=== PATIENT | female | born 1990 | race Caucasian/White ===

== ENCOUNTER 2017-07-14 23:36 | Emergency (ER) | payer BC ==
--- NOTE | 2017-07-15 02:18 | Cat Scan Report ---
FINAL REPORT EXAM: CT HEAD/BRAIN W/O CONTRAST. HISTORY: HEADACHE. TECHNIQUE: Unenhanced axial CT images of the brain were obtained. No prior studies are available for comparison. FINDINGS: The cortical sulci and ventricles are within normal limits for patient's age. There is asymmetric relative enlargement of the left frontal horn, with mild patchy areas of low-attenuation in the adjacent periventricular white matter. This is of uncertain etiology and may represent sequela prior chronic injury/ischemia. Clinical correlation is recommended. There is no extra-axial fluid collection, mass, mass effect, midline shift, hydrocephalus, or acute intracranial hemorrhage. The visualized paranasal sinuses and mastoid air cells are clear. There is no skull fracture or other osseous abnormality. IMPRESSION: 1. Asymmetric relative enlargement of the left frontal horn, with foci of mild patchy low attenuation in the surrounding periventricular white matter. These findings are nonspecific, but favor chronic etiology (such as sequela of prior injury/ischemia). Clinical correlation is recommended, and MRI examination may be useful for further evaluation. 2. No mass effect, hydrocephalus, or acute intracranial hemorrhage.
[2017-07-15 07:45] VITALS: BP 96/58
[2017-07-15] MEDS ORDERED: TORADOL IV ONE (07:45)
[2017-07-15] MEDS ORDERED: NACL 0.9% 1000 ML 1,000 ML IV ONE (07:45)
[2017-07-15] MEDS ORDERED: REGLAN IV ONE (07:45)
[2017-07-15] MEDS ORDERED: BENADRYL IV ONE (07:45)
--- NOTE | 2017-07-15 10:49 | Emergency Department Report ---
ED Headache HPI - General Chief Complaint: Headache Stated Complaint: HEADACHE - History of Present Illness Allergies/Adverse Reactions: Allergies No Known Allergies Allergy (Verified 07/14/17 23:58) Home Medications: Ambulatory Orders Butalb/Acetaminophen/Caffeine [Fioricet 50-300-40 mg CAP] 1 cap PO Q8HR #15 cap 07/15/17 ED Review of Systems ROS: Stated complaint: HEADACHE Other details as noted in HPI ED Past Medical Hx - Past Medical History Previous Medical History?: Yes Hx Psychiatric Treatment: Yes (DEPRESION) - Surgical History Past Surgical History?: No - Social History Smoking Status: Never Smoker Substance Use Type: None - Medications Home Medications: Home Medications Medication Instructions Recorded Confirmed Last Taken Type Butalb/Acetaminophen/Caffeine 1 cap PO Q8HR #15 cap 07/15/17 Unknown Rx [Fioricet 50-300-40 mg CAP] ED Physical Exam - General Limitations: Language Barrier ED Course Vital Signs 07/14/17 07/15/17 07/15/17 23:58 05:19 05:28 Temperature 98.7 F 98.1 F Pulse Rate 70 72 72 Respiratory 18 12 18 Rate Blood Pressure 108/68 107/72 Blood Pressure 102/60 [Left] O2 Sat by Pulse 98 99 99 Oximetry 07/15/17 07/15/17 07/15/17 07:43 07:58 08:27 Temperature 98.3 F Pulse Rate 90 Respiratory 16 18 16 Rate Blood Pressure Blood Pressure 96/58 [Left] O2 Sat by Pulse 100 Oximetry Critical care attestation.: If time is entered above; I have spent that time in minutes in the direct care of this critically ill patient, excluding procedure time. ED Disposition Disposition: DC-01 TO HOME OR SELFCARE Condition: Stable Instructions: Migraine Headache (ED) Prescriptions: Butalb/Acetaminophen/Caffeine [Fioricet 50-300-40 mg CAP] 1 cap PO Q8HR #15 cap Referrals: VICKY MIXON MD [Primary Care Provider] - 3-5 Days
== END 2017-07-15 09:36 | disposition home or self-care (01) ==
LOC: ED 23:36
DX: R51 Headache (principal); F32.9 Major depressive disorder, single episode, unspecified
CPT/HCPCS: 36415; 70450; 84703; 96374; 96375; 99284; J1200; J1885; J2765; J7030

== ENCOUNTER 2021-03-03 16:41 | Emergency (ER) | payer BC ==
[2021-03-03 17:59] VITALS: BP 98/57
--- NOTE | 2021-03-03 19:40 | Event Note ---
ED Screening Note Date of service: 03/03/21 Time: 19:35 ED Screening Note: 30-year-old female presents to the emergency room stating she is 7 weeks and is having nausea vomiting and vaginal bleeding. Having some pelvic pain. Last menstrual period 01/12/2021. Has not seen a CHAIN PEGGER. This initial assessment/diagnostic orders/clinical plan/treatment(s) is/are subject to change based on patients health status, clinical progression and re- assessment by fellow clinical providers in the ED. Further treatment and workup at subsequent clinical providers discretion. Patient/guardian urged not to elope from the ED as their condition may be serious if not clinically assessed and managed. Initial orders include:
[2021-03-03 20:03] LABS: Basophils # (Auto) 0.1 K/mm3 (0.0-0.1); Basophils % (Auto) 0.5 % (0.0-1.8); Eosinophils % (Auto) 0.5 % (0.0-4.3); Hemoglobin 13.1 gm/dl (10.1-14.3); Lymphocytes # (Auto) 3.4 K/mm3 (1.2-5.4); Mean Corpuscular HGB Conc 35 % (30-34); Mean Corpuscular Volume 89 fl (79-97); Monocytes # (Auto) 0.7 K/mm3 (0.0-0.8); Platelet Count 243 K/mm3 (140-440); Red Blood Count 4.28 M/mm3 (3.65-5.03); Red Cell Distribution Width 13.3 % (13.2-15.2)
[2021-03-03 20:46] LABS: Alanine Aminotransferase 46 units/L (7-56); Albumin 4.5 g/dL (3.9-5); Blood Urea Nitrogen 9 mg/dL (7-17); Calcium 9.4 mg/dL (8.4-10.2); Hemolysis Index 0
[2021-03-03 20:48] LABS: BUN/Creatinine Ratio 18
[2021-03-03 20:49] LABS: Bilirubin,Urine NEG (Negative); Blood,Urine NEG (Negative); Color,Urine Yellow (Yellow); Mucus,Urine 1+ /HPF; Protein,Urine <15 mg/dL mg/dL (Negative); Urobilinogen,Urine < 2.0 mg/dL (<2.0)
--- NOTE | 2021-03-03 22:58 | Ultrasound Report ---
ULTRASOUND OBSTETRIC INDICATION / CLINICAL INFORMATION: 7 wks, vag bleed, pelvic pain. Clinical Gestational Age (GA): 7.1 weeks.days TECHNIQUE: Transvaginal. COMPARISON: None available. FINDINGS: GESTATIONAL SAC: Well-defined oval shape and intrauterine in location. YOLK SAC: No significant abnormality. EMBRYO/FETUS: No significant abnormality. -Gestational sac diameter measures 3.02 cm = 8.1 weeks.days - Heart Rate, beats per minute (if present) = 125 ADNEXA: No significant abnormality. FREE FLUID: None. ADDITIONAL FINDINGS: None. IMPRESSION: 1. Single, living intrauterine with estimated sonographic age of 8.1 weeks.days. Signer Name: Elieser Dexter MD Signed: 03/03/2021 10:54 PM Workstation Name: [id number]
--- NOTE | 2021-03-03 23:38 | Emergency Department Report ---
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 She is 2 para 1 with a last menstrual period of 01/12/2021. Patient reports that she is approximately 7 weeks . She does admit to mild abdominal cramping. Patient states she is having a little bit of spotting and a little bit of cramps. Has no complications with her previous . She last delivered at [facility]. She is on a gone through 1 pad. No past medical history currently takes vitamins and has no known drug allergies. MD Complaint: abdominal pain, vaginal bleeding -: This morning Location: pelvis Severity scale (0 -10): 2 Quality: cramping Consistency: intermittent Improves with: none Associated symptoms: vaginal bleeding Vaginal bleeding: light :: Yes Number of weeks : 7 OB History - Previous Pregnancies: no complications Last menstrual period: 01/12/21 Pre- care: followed by OB - Related Data : 2 Para: 1 Previous Rx's Medication Instructions Recorded Last Taken Type Butalb/Acetaminophen/Caffeine 1 cap PO Q8HR #15 cap 07/15/17 Unknown Rx [Fioricet 50-300-40 mg CAP] Allergies Allergy/AdvReac Type Severity Reaction Status Date / Time No Known Allergies Allergy Verified 03/03/21 17:53 ED Review of Systems ROS: Stated complaint: VAGINAL BLEEDING Other details as noted in HPI ED Past Medical Hx - Past Medical History Hx Psychiatric Treatment: Yes (DEPRESION) - Social History Smoking Status: Never Smoker Substance Use Type: None - Medications Home Medications: Home Medications Medication Instructions Recorded Confirmed Last Taken Type Butalb/Acetaminophen/Caffeine 1 cap PO Q8HR #15 cap 07/15/17 Unknown Rx [Fioricet 50-300-40 mg CAP] ED Physical Exam - General Limitations: Language Barrier General appearance: alert, in no apparent distress - Head Head exam: Present: atraumatic, normocephalic - Eye Eye exam: Present: normal appearance - ENT ENT exam: Present: mucous membranes moist - Neck Neck exam: Present: normal inspection - Respiratory Respiratory exam: Present: normal lung sounds bilaterally. Absent: respiratory distress - Cardiovascular Cardiovascular Exam: Present: regular rate, normal rhythm. Absent: systolic murmur, diastolic murmur, rubs, gallop - GI/Abdominal GI/Abdominal exam: Present: soft, normal bowel sounds - Extremities Exam Extremities exam: Present: normal inspection - Back Exam Back exam: Present: normal inspection - Neurological Exam Neurological exam: Present: alert, oriented X3 - Psychiatric Psychiatric exam: Present: normal affect, normal mood - Skin Skin exam: Present: warm, dry, intact, normal color. Absent: rash ED Course Vital Signs 03/03/21 17:57 Temperature 98.8 F Pulse Rate 73 Respiratory 20 Rate Blood Pressure 98/57 O2 Sat by Pulse 100 Oximetry ED Medical Decision Making - Lab Data Result diagrams: 03/03/21 19:44 03/03/21 19:44 - Radiology Data Radiology results: report reviewed [facility] [address] [place] [address] Ultrasound Report Signed Patient: JADYN GORDON MR#: [id number] : 1990 Acct:[id number] Age/Sex: 30 / F ADM Date: 03/03/21 Loc: ED Attending Dr: Ordering Physician: MIRTA ARANA Date of Service: 03/03/21 Procedure(s): US OB <= 14 wk fetus add gest Accession Number(s): [id number] cc: MIRTA ARANA ULTRASOUND OBSTETRIC INDICATION / CLINICAL INFORMATION: 7 wks, vag bleed, pelvic pain. Clinical Gestational Age (GA): 7.1 weeks.days TECHNIQUE: Transvaginal. COMPARISON: None available. FINDINGS: GESTATIONAL SAC: Well-defined oval shape and intrauterine in location. YOLK SAC: No significant abnormality. EMBRYO/FETUS: No significant abnormality. -Gestational sac diameter measures 3.02 cm = 8.1 weeks.days - Heart Rate, beats per minute (if present) = 125 ADNEXA: No significant abnormality. FREE FLUID: None. ADDITIONAL FINDINGS: None. IMPRESSION: 1. Single, living intrauterine with estimated sonographic age of 8.1 weeks.days. Signer Name: Elieser Eugene MD Signed: 03/03/2021 10:54 PM Workstation Name: [id number] Transcribed By: CECIL Dictated By: ELIESER EUGENE Electronically Authenticated By: ELIESER EUGENE Signed Date/Time: 03/03/212253 DD/ 48 TD/TT: Print Cancel Critical care attestation.: If time is entered above; I have spent that time in minutes in the direct care of this critically ill patient, excluding procedure time. ED Disposition Clinical Impression: Vaginal spotting, Threatened miscarriage in early Disposition: DC-01 TO HOME OR SELFCARE Is pt being admited?: No Does the pt Need Aspirin: No Condition: Stable Instructions: Threatened Miscarriage, [id number] Additional Instructions: Ultrasound shows 8 weeks and 1 day. Urinalysis is negative for any infection. Very important for you to follow back up with your CHIEF METER READER. El ultrasonido muestra 8 semanas y 1 da. La miclisis es negativa para cualquier infeccin. Muy importante para usted para seguir de nuevo con [facility] / [employer]GER. Referrals: PRIMARY CAREMD [Primary Care Provider] - 3-5 Days [facility] [Provider Group] - 3-5 Days Forms: Work/School Release Form(ED)
== END 2021-03-04 02:37 | disposition home or self-care (01) ==
LOC: ED 16:41
DX: O20.0 Threatened abortion (principal); O99.341 Other mental disorders complicating pregnancy, first trimester; F32.9 Major depressive disorder, single episode, unspecified; Z79.899 Other long term (current) drug therapy; Z3A.01 Less than 8 weeks gestation of pregnancy
CPT/HCPCS: 36415; 76802; 76817; 80053; 81001; 84702; 85025; 86900; 86901